=== PATIENT | male | born 1930 | race Caucasian/White ===

== ENCOUNTER 2022-03-31 03:27 | Emergency (ER) | payer BC, MEDICARE ==
[~2022-03-31] VITALS: Ht 175.3 cm; Wt 75.7 kg
[~2022-03-31 03:27] MED LIST: ASPI-1169 PO; ATOR20TA PO; BRIM5DRO2 OP; BUDE10.2 INH; CLOP75TA15 PO; ESOM40CA PO; EZET10TA16 PO; HYDR12.55 PO; METO50TA7 PO; OLME40TA12 PO; SITA1TAB2 PO; TAMS-12 PO
--- NOTE | 2022-03-31 03:45 | NUR ---
MALENA FROM HOME C/O FULL DEE. PT WAS UNABLE TO EMPTY IT RA HELPED THE PT EMPTY THE DEE, PT DENIES HAVING PAIN UPON TRIAGE. PT A/OX3. TOLERATING R/A WELL WITH NO SOB. CONNECTED PT TO POX AND MONITOR. SAFETY MEASURES IN PLACE. VSS.
--- NOTE | 2022-03-31 03:55 | NUR ---
DR. ELIZABETH SIMMS AT PT'S BEDSIDE
--- NOTE | 2022-03-31 05:07 | NUR ---
Patient discharged to home in stable condition. Written and verbal after care instructions given. Patient verbalizes understanding of instruction.
[2022-03-31 05:08] VITALS: BP 115/60
== END 2022-03-31 05:08 | disposition home or self-care (01) ==
LOC: ER 03:28
DX: T83.098A Other mechanical complication of other urinary catheter, initial encounter (principal); I10 Essential (primary) hypertension; E78.00 Pure hypercholesterolemia, unspecified; Z90.2 Acquired absence of lung [part of]; Z85.46 Personal history of malignant neoplasm of prostate; Z79.899 Other long term (current) drug therapy